=== PATIENT | female | born 1950 ===

== ENCOUNTER → 2018-06-08 21:55 | Outpatient (REF) | payer MEDICARE, SELFPAY ==
[2018-06-13 17:38] LABS: Glucose-6-Phosphate Dehydrogen 11.8 U/g Hgb (7.0-20.5)
== END ==
LOC: LAB 21:55
PROVIDERS: Visit Provider Naturopath
DX: C80.1 Malignant (primary) neoplasm, unspecified (principal)
CPT/HCPCS: 36415; 82955